=== PATIENT | female | born 1975 | race Caucasian/White ===

== ENCOUNTER 2016-09-08 13:56 | Emergency (ER) | payer OTHER ==
--- NOTE | 2016-09-08 14:05 | PDOC ---
History of Present Illness - General Chief Complaint: Redness To Affected Area Stated Complaint: right 4th finger redness Time Seen by Provider: 09/08/16 13:59 History Source: Patient Exam Limitations: No Limitations - History of Present Illness Initial Comments: 09/08/16 14:02 41 y/o female with infection to the right 4th digit for 4 days. It has become red and swollen and painful to touch at the tip of the finger. No fall or trauma. No fever or chills. Severity: Yes: mild Past History - Past Medical History Allergies/Adverse Reactions: Allergies Allergy/AdvReac Type Severity Reaction Status Date / Time clarithromycin [From Biaxin] Allergy Verified 09/08/16 14:06 Home Medications: Ambulatory Orders Clindamycin [Cleocin -] 150 mg PO Q8H #21 capsule 09/08/16 - Reproductive History (#): 0 Para: 0 Spontaneous : 0 - Psycho/Social/Smoking Cessation Hx Suicidal Ideation: No Smoking Status: No Smoking History: Never smoked Number of Cigarettes Smoked Daily: 0 Review of Systems - Review of Systems Able to Perform ROS?: Yes Is the patient limited Lebanese proficient: No Constitutional: No: Chills, Fever Respiratory: No: Cough, Shortness of Breath Cardiac (ROS): No: Chest Pain Integumentary: Yes: Erythema, Rash Neurological: No: Headache All Other Systems: Reviewed and Negative *Physical Exam - Physical Exam General Appearance: Yes: Nourished. No: Appropriately Dressed, Apparent Distress HEENT: positive: EOMI, PRECIOUS, Normal ENT Inspection Neck: positive: Supple Vascular Pulses: Femoral (R): 4+, Femoral (L): 4+, Carotid (R): 4+, Carotid (L) : 4+, Dorsalis-Pedis (R): 4+, Doralis-Pedis (L): 4+ Lymphatic: negative: Adenopathy, Tenderness, Other Musculoskeletal: positive: Normal Inspection. negative: CVA Tenderness Extremity: positive: Normal Capillary Refill, Normal Range of Motion, Tender. negative: Normal Inspection (red swollen tender area to right 4th finger, full ROM at PIP/DIP, no focal deficits noted, mild fluctuance), Coldness, Cyanosis Integumentary: positive: Normal Color, Dry, Warm, Erythema, Swelling Neurologic: positive: meter tester II-XII NML intact, Fully Oriented, Alert, Normal Mood/ Affect, Normal Response, Motor Strength 5/5 Procedures - Incision and Drainage I&D Site: Right: Other (4th digit) Betadine cleansed: Yes Blade Size: 11 Attempts: 1 Complications: none (1 cc of purulent drainage noted) Dressing: No Progress Note - Progress Note Progress Note: Pt with paronychia to 4th right finger. Will I&D and place on Clindamycin If worsen return to ER Pt is in agreement with plan. *DC/Admit/Observation/Transfer Diagnosis at time of Disposition: Paronychia of finger of right hand - Discharge Dispostion Disposition: HOME Condition at time of disposition: Good Admit: No - Patient Instructions Printed Discharge Instructions: DI for Paronychia Additional Instructions: Clindamycin 150 mg 3x/day for 7 days Soak finger in warm soaks 3-4x/day for 10-15 minutes Motrin, rest If worsen return to ER
[2016-09-08] MEDS ORDERED: IBUPROFEN 400 MG TABLET (FP) PO ONE ×2 (14:09→14:12)
[2016-09-08 14:13] VITALS: BP 122/68; PULSE 77; TEMP 98; BMI 26.6
== END 2016-09-08 14:37 | disposition home or self-care (01) ==
LOC: FER 13:56
PROC: 0H9FXZZ Drainage of Right Hand Skin, External Approach (ICD-10-PCS; principal; 2016-09-08)
DX: L03.011 Cellulitis of right finger (principal)
CPT/HCPCS: 99282-25

== ENCOUNTER 2017-04-02 15:20 | Emergency (ER) | payer OTHER ==
[2017-04-02 15:34] VITALS: BP 164/106; PULSE 66; TEMP 98; BMI 23.1
--- NOTE | 2017-04-02 15:42 | PDOC ---
Rapid Medical Evaluation Chief Complaint: Eye Problem Time Seen by Provider: 04/02/17 15:38 Medical Evaluation: Allergies Allergy/AdvReac Type Severity Reaction Status Date / Time clarithromycin [From Biaxin] Allergy Verified 04/02/17 15:34 Vital Signs Temp Pulse Resp BP Pulse Ox 98.0 F 66 20 164/106 100 04/02/17 15:30 04/02/17 15:30 04/02/17 15:30 04/02/17 15:30 04/02/17 15:30 04/02/17 15:41 I have performed a brief in-person evaluation of this patient. The patient presents with a chief complaint of:sty to R eye Pertinent physical exam findings:sty to lid I have ordered the following:nothing, proceed to FT The patient will proceed to the ED for further evaluation.
[2017-04-02] MEDS ORDERED: ERYTHROMYCIN 0.5% OPHTHALMIC OINTMENT 3.5 GM TUBE OD ONE (16:01)
[2017-04-02] MEDS ORDERED: ERYTHROMYCIN 0.5% OPHTHALMIC OINTMENT 3.5 GM TUBE ONE (16:04)
--- NOTE | 2017-04-02 16:06 | PDOC ---
History of Present Illness - General Chief Complaint: Eye Problem Stated Complaint: STYE IN RT EYE Time Seen by Provider: 04/02/17 15:38 History Source: Patient Exam Limitations: No Limitations - History of Present Illness Initial Comments: 04/02/17 16:00 c/o stye to right upper eyelid for 5 days. no fever had swelling and discharge this morning. Timing/Duration: 1 week Severity: mild Past History - Past Medical History Allergies/Adverse Reactions: Allergies Allergy/AdvReac Type Severity Reaction Status Date / Time clarithromycin [From Biaxin] Allergy Verified 04/02/17 15:34 Home Medications: Ambulatory Orders Erythromycin 0.5% Eye Ointment [Erythromycin 0.5% Eye Ointment -] 1 applic OD TID #1 tube 04/02/17 COPD: No - Reproductive History (#): 0 Para: 0 Spontaneous : 0 - Suicide/Smoking/Psychosocial Hx Smoking Status: No Smoking History: Never smoked Have you smoked in the past 12 months: No Number of Cigarettes Smoked Daily: 0 Hx Alcohol Use: No Drug/Substance Use Hx: No Substance Use Type: None Review of Systems - Review of Systems Able to Perform ROS?: Yes Is the patient limited Upper Sorbian proficient: No Constitutional: No: Symptoms Reported HEENTM: Yes: Symptoms Reported Respiratory: No: Symptoms reported Cardiac (ROS): No: Symptoms Reported ABD/GI: No: Symptoms Reported : No: Symptoms Reported Musculoskeletal: No: Symptoms Reported Integumentary: Yes: Symptoms Reported Neurological: No: Symptoms reported *Physical Exam - Vital Signs Last Vital Signs Temp Pulse Resp BP Pulse Ox 98.0 F 66 20 164/106 100 04/02/17 15:30 04/02/17 15:30 04/02/17 15:30 04/02/17 15:30 04/02/17 15:30 - Physical Exam General Appearance: Yes: Nourished, Appropriately Dressed HEENT: positive: EOMI, PRECIOUS, TMs Normal, Other (right upper eyelid with stye mobile with surrounding redness no drainage no periorbital swelling or pain, EOMI without pain ) Neck: positive: Supple Respiratory/Chest: positive: Lungs Clear, Normal Breath Sounds Cardiovascular: positive: Regular Rhythm, Regular Rate Extremity: positive: Normal Capillary Refill, Normal Inspection, Normal Range of Motion Integumentary: positive: Normal Color, Dry, Warm Neurologic: positive: Fully Oriented, Alert, Normal Mood/Affect, Normal Response , Motor Strength 10/04 Medical Decision Making - Medical Decision Making 04/02/17 16:03 cc: stye to right upper eyelid had swelling and drainage this am will prescribe erythromycin ointment *DC/Admit/Observation/Transfer Diagnosis at time of Disposition: Stye external Qualifiers: Laterality: right Eyelid: upper Qualified Code(s): H00.011 - Hordeolum externum right upper eyelid - Discharge Dispostion Disposition: HOME Condition at time of disposition: Good - Prescriptions Prescriptions: Erythromycin 0.5% Eye Ointment [Erythromycin 0.5% Eye Ointment -] 1 applic OD TID #1 tube - Referrals Referrals: Yumiko Araiza MD [Primary Care Provider] - Mason Laughlin [Staff Physician] - - Patient Instructions Additional Instructions: follow with the eye doctor if symptoms worsen avoid using eye makeup warm compresses to the area of swelling clean with a moist cotton ball and antibacterial soap twice a day apply the eye ointment in a thin layer to lower lid and close eyes gently massage to get the ointment to the upper lid as well use for 5 days - Post Discharge Activity
== END 2017-04-02 16:09 | disposition home or self-care (01) ==
LOC: JERFT 15:20
DX: H00.011 Hordeolum externum right upper eyelid (principal)
CPT/HCPCS: 99281-25

== ENCOUNTER 2018-09-17 22:19 | Emergency (ER) | payer OTHER ==
[2018-09-17 22:24] VITALS: PULSE 83; TEMP 98.2; BMI 23.0
--- NOTE | 2018-09-17 23:06 | PDOC ---
History of Present Illness - General Chief Complaint: Chest Pain Stated Complaint: LFT HAND NUMBNESS Time Seen by Provider: 09/17/18 23:00 - History of Present Illness Initial Comments: 09/17/18 23:01 43 yo F with no significant pmh who p/w chest pain, and left arm numbness. Patient reports 2 days of severe unremitting, left sided neck pain radiating to left fingertips asx. w/tingling. Also endorses left sided sharp chest pain occurring for seconds and resolving spontaneously. No identifiable triggers or alleviators. Denies external neck manipulation, repetitive movements, or heavy lifting. states that she has experienced left arm pain before in past, but never as severe as current presentation. Also endorses occasional sustained chin spasms "twitching,." Denies neck or chest trauma. Patient denies RAMON, vision change, palpitations, cough, wheezing, orthopena, PND , leg swelling/pain, N/V, F/C, SOB, urinary complaints, hematuria, BPR, abdominal pain, diarrhea, constipation, lightheadedness, weakness. PMHx: as noted above. Denies h/o ACS/MS, stress testing, holter monitor testing , stent or CABG. Denies h/o PE/DVT. Surgical: Oophorectomy, and breast reduction ROS: as noted SHx: Denies tobacco, IVDA, Etoh Allergies: Percocet, Atarax PMD: Ammir Teodora Past History - Past Medical History Allergies/Adverse Reactions: Allergies Allergy/AdvReac Type Severity Reaction Status Date / Time clarithromycin [From Biaxin] Allergy Severe SEVERE N&V Verified 09/17/18 22:24 Home Medications: Ambulatory Orders Oxycodone HCl/Acetaminophen [Percocet 10-325 mg Tablet] 1 each PO QID 03/05/18 hydrOXYzine HCL [Atarax -] 10 mg PO ASDIR PRN 03/05/18 Methocarbamol [Robaxin -] 500 mg PO BID PRN #10 tablet MDD 2 tab 09/18/18 Anemia: Yes (DURING ) Asthma: No Cancer: No Cardiac Disorders: No CVA: No COPD: No CHF: No Dementia: No Diabetes: No GI Disorders: No Disorders: No HTN: No Hypercholesterolemia: No Liver Disease: No Seizures: No Thyroid Disease: No - Surgical History Abdominal Surgery: No Appendectomy: No Cardiac Surgery: No Cholecystectomy: No Lung Surgery: No Neurologic Surgery: No Orthopedic Surgery: No - Reproductive History (#): 0 Para: 0 Spontaneous : 0 - Suicide/Smoking/Psychosocial Hx Smoking Status: No Smoking History: Never smoked Have you smoked in the past 12 months: No Number of Cigarettes Smoked Daily: 0 Hx Alcohol Use: No Drug/Substance Use Hx: No Substance Use Type: None Review of Systems - Review of Systems Comments:: 09/17/18 23:04 GENERAL/CONSTITUTIONAL: No fever or chills. No weakness. HEAD, EYES, EARS, NOSE AND THROAT: No change in vision. No ear pain or discharge. No sore throat. CARDIOVASCULAR: + chest pain. No shortness of breath RESPIRATORY: No cough, wheezing, or hemoptysis. GASTROINTESTINAL: No nausea, vomiting, diarrhea or constipation. GENITOURINARY: No dysuria, frequency, or change in urination. MUSCULOSKELETAL: No joint or muscle swelling or pain. No neck or back pain. SKIN: No rash NEUROLOGIC: Change in sensation. No headache, vertigo, loss of consciousness, or change in strength. ENDOCRINE: No increased thirst. No abnormal weight change HEMATOLOGIC/LYMPHATIC: No anemia, easy bleeding, or history of blood clots. ALLERGIC/IMMUNOLOGIC: No hives or skin allergy. *Physical Exam - Vital Signs Last Vital Signs Temp Pulse Resp BP Pulse Ox 98.2 F 83 18 176/93 H 99 09/17/18 22:22 09/17/18 22:22 09/17/18 22:22 09/17/18 22:22 09/17/18 22:22 - Physical Exam Comments: 09/17/18 23:04 GENERAL: Awake, alert, and fully oriented, in no acute distress HEAD: No signs of trauma, normocephalic, atraumatic EYES: PERRLA, EOMI, sclera anicteric, conjunctiva clear ENT: Auricles normal inspection, hearing grossly normal, nares patent, oropharynx clear without exudates. Moist mucosa NECK: Normal ROM, supple, no lymphadenopathy, JVD, or masses Neck: Neg c-spine ttp. + left sided paraspinal ttp. Absent bony deformity or stepoff. LUNGS: No distress, speaks full sentences, clear to auscultation bilaterally HEART: Regular rate and rhythm, normal S1 and S2, no murmurs, rubs or gallops, peripheral pulses normal and equal bilaterally. ABDOMEN: Soft, nontender, normoactive bowel sounds. No guarding, no rebound. No masses EXTREMITIES : Normal inspection, Normal range of motion, no edema. No clubbing or cyanosis. NEUROLOGICAL: Cranial nerves II through XII grossly intact. Normal speech, normal gait, no focal sensorimotor deficits SKIN: Warm, Dry, normal turgor, no rashes or lesions noted ED Treatment Course - LABORATORY CBC & Chemistry Diagram: 09/17/18 23:23 09/17/18 23:23 Medical Decision Making - Medical Decision Making 09/17/18 23:03 43 yo F with no significant pmh who p/w 2 days of severe unremitting, left sided neck pain radiating to left fingertips asx. w/tingling. and intermittent sharp, left sided chest pain. Physical exam unremarkable. BP 176/93, vitals otherwise wnl, AF, ACS/MS r/o. R/o PNA. DDx includes pleural/pericardial effusion, PNA, PERC Neg PE. Will assess for thyroid dysfunction, cardiac dysarrythmias, hypoglycemia, electrolyte abnml, metabolic and toxic derangements , acid-base disturbances, infection. Will reassess. DUPLEX LUE r/o DVT. ED Course: 09/17/18 23:29 Robaxin, Tylenol 09/18/18 00:20 EKG: NSR with absent SANKET, STD. Nml interval duration and axis. Nml R wave progression. Absent Q waves. 09/18/18 01:18 145/93 repeat BP 09/18/18 01:56 Toradol 60 IM CMP: Unremarkable Trop: Neg Patient advised to f/u with neurology Stable for d/c with return precautions. 09/18/18 02:19 CXR: Unremarkable Advised to f/u neruosurgery 09/18/18 03:04 DUPLEX LUE: No evidence of DVT *DC/Admit/Observation/Transfer Diagnosis at time of Disposition: Arm paresthesia, left - Discharge Dispostion Condition at time of disposition: Stable Decision to Admit order: No - Prescriptions Prescriptions: Methocarbamol [Robaxin -] 500 mg PO BID PRN #10 tablet MDD 2 tab PRN Reason: Pain - Referrals Referrals: Ivan Helms MD [Staff Physician] - Yumiko Araiza MD [Primary Care Provider] - Gerson Hilliard MD, FAANS [Staff Physician] - - Patient Instructions Printed Discharge Instructions: DI for Atypical Chest Pain Additional Instructions: Please return to the emergency department with any new or worsening symptoms or concerns. Please follow up with your primary care physician and neurosurgery within 72 hours. Can take Robaxin two times a day as needed. - Post Discharge Activity
[2018-09-17] MEDS ORDERED: ACETAMINOPHEN 325 MG TABLET (FP) PO ONE (23:37)
[2018-09-17] MEDS ORDERED: ACETAMINOPHEN 325 MG TABLET (FP) ONE (23:42)
[2018-09-17] MEDS ORDERED: METHOCARBAMOL 500 MG TABLET PO ONE (23:51)
[2018-09-18] LABS: BASO % 0.5 % (0-2.0); HEMATOCRIT 39.3 % (32.4-45.2); HEMOGLOBIN 13.2 GM/dL (10.7-15.3); LYMPH % 42.3 % (8-40); MCH 30.9 pg (25.7-33.7); MCHC 33.6 g/dl (32.0-36.0); MEAN CELL VOLUME 91.9 fl (80-96); MEAN PLT VOLUME 8.2 fl (7.5-11.1); NEUT % 50.2 % (42.8-82.8); PLATELET COUNT 226 K/MM3 (134-434); RBC 4.28 M/mm3 (3.60-5.2); RDW 12.7 % (11.6-15.6); WHITE BLOOD COUNT 6.1 K/mm3 (4.0-10.0)
--- NOTE | 2018-09-18 00:03 | PDOC ---
Documentation entered by Vi Mccurdy SCRIBE, acting as scribe for Lynn Franks DO. Lynn Franks DO: This documentation has been prepared by the Kaz coleman Daisy, SCRIBE, under my direction and personally reviewed by me in its entirety. I confirm that the documentation accurately reflects all work, treatment, procedures, and medical decision making performed by me. Attending Attestation - Resident Resident Name: Kade Syed - ED Attending Attestation I have performed the following: I have examined & evaluated the patient, The case was reviewed & discussed with the resident, I agree w/resident's findings & plan, Exceptions are as noted - HPI HPI: 09/18/18 00:06 The patient is a 43 YOF with left arm numbness and neck pain today. Patient denies any trauma or recent falls. Denies any heavy lifting. - Physicial Exam PE: 09/18/18 00:04 ADULT PHYSICAL EXAM Constitutional: Awake, alert, oriented. No acute distress. Cardiovascular: Regular rate. Regular rhythm. S1, S2 regular. Distal pulses are 2+ and symmetric. Pulmonary/Chest: No evidence of respiratory distress. Clear to auscultation bilaterally No wheezing, rales or rhonchi. Abdominal: Soft and non-distended. There is no tenderness. No rebound, guarding or rigidity. Back: No C, T, or L spine tenderness. (+) Rhomboids/trapezius tenderness. Musculoskeletal: No edema. No cyanosis. No clubbing. Full range of motion in all extremities. No calf tenderness. Radial/pedal pulses are intact and 2+ bilaterally Skin: Skin is warm and dry. Neurological: Alert and oriented to person, place, and time. Cranial nerves II -XII are grossly intact. Psychiatric: Good eye contact. Normal interaction, affect and behavior. - Medical Decision Making 09/18/18 00:00 I, Dr. Lynn Franks DO, attest that this document has been prepared under my direction and personally reviewed by me in its entirety. I further attest, that it accurately reflects all work, treatment, procedures and medical decision -making performed by me. 09/18/18 00:00 a/p: 43yo female with anterior chest pinpoint pain and L arm numbness and neck pain -has had neck pain x days, but paresthesias-tingling sensation to L arm constant today -palpation of the L lateral neck and rhomboids/trap reproduces paresthesias and tingling down the arm -denies trauma -denies heavy lifting or carrying anything on her L side -neurovasc intact -sensation intact -will send labs, ekg, cxr -suspect MSK pain - no PE risk factors -will give tylenol and robaxin and reassess 09/18/18 01:55 trop negative cxr clear labs reviewed and neg lipase tsh normal Heart Score/ECG Review - ECG Intrepretation Comment:: 09/18/18 00:03 sinus at 82, nl axis, nl interval, no acute st/t wave findings
[2018-09-18] MEDS ORDERED: METHOCARBAMOL 500 MG TABLET ONE (00:07)
[2018-09-18 00:33] VITALS: BP 145/93
[2018-09-18 01:37] LABS: ALBUMIN 3.8 g/dl (3.4-5.0); ALK PHOS 73 U/L (45-117); ANION GAP 7 MMOL/L (8-16); BILIRUBIN,TOTAL 0.1 mg/dL (0.2-1); BLOOD UREA NITROGEN 13 mg/dL (7-18); CALCIUM 9.2 mg/dL (8.5-10.1); CHLORIDE 103 mmol/L (98-107); CO2 26 mmol/L (21-32); CREATININE 0.8 mg/dL (0.55-1.3); GLUCOSE,RANDOM 82 mg/dL (74-106); LIPASE 164 U/L (73-393); POTASSIUM 3.8 mmol/L (3.5-5.1); SGOT/AST 20 U/L (15-37); SGPT/ALT 13 U/L (13-61); SODIUM 137 mmol/L (136-145); TOT PROT 7.6 g/dl (6.4-8.2)
[2018-09-18] MEDS ORDERED: KETOROLAC TROMETHAMINE 60 MG/2 ML VIAL IM ONE (01:56)
[2018-09-18] MEDS ORDERED: KETOROLAC TROMETHAMINE 60 MG/2 ML VIAL ONE (01:58)
--- NOTE | 2018-09-18 10:38 | EKG ---
Test Reason : Blood Pressure : / mmHG Vent. Rate : 082 BPM Atrial Rate : 082 BPM P-R Int : 130 ms QRS Dur : 078 ms QT Int : 380 ms P-R-T Axes : 072 066 060 degrees QTc Int : 443 ms NORMAL SINUS RHYTHM POSSIBLE LEFT ATRIAL ENLARGEMENT NONSPECIFIC ST ABNORMALITY NO PREVIOUS ECGS AVAILABLE Confirmed by BILL SANTOYO MD ([id number]) on 09/18/2018 10:38:21 AM Referred By: Confirmed By:BILL SANTOYO MD
== END 2018-09-18 03:08 | disposition home or self-care (01) ==
LOC: JER 22:19
PROC: 3E0233Z Introduction of Anti-inflammatory into Muscle, Percutaneous Approach (ICD-10-PCS; principal; 2018-09-17)
DX: R20.2 Paresthesia of skin (principal)
CPT/HCPCS: 36415; 71046-TC-FY; 80053; 82550; 83690; 83735; 84443; 84484; 84703; 85025; 93005; 93010; 93971; 99284-25

== ENCOUNTER 2020-04-24 15:24 | Emergency (ER) | payer OTHER | END 2020-04-24 15:40 | disposition home or self-care (01) | LOC: JVIRT 15:24 | DX: Z03.818 Encounter for observation for suspected exposure to other biological agents ruled out (principal) | CPT/HCPCS: C9803; G2012-GT; U0003 ==

== ENCOUNTER 2021-01-25 18:28 | Emergency (ER) | payer OTHER ==
[2021-01-25 18:54] VITALS: BMI 23.9
[2021-01-25] MEDS ORDERED: ONDANSETRON 4 MG/2 ML VIAL IVPUSH ONE (20:13)
[2021-01-25] MEDS ORDERED: SODIUM CHLORIDE 1,000 ML IV STA (20:13)
[2021-01-25] MEDS ORDERED: ONDANSETRON 4 MG/2 ML VIAL ONE (20:39)
[2021-01-25 21:26] LABS: BASO % 0.4 % (0-2.0); EOS % 0.6 % (0-4.5); HEMATOCRIT 40.5 % (32.4-45.2); HEMOGLOBIN 13.7 GM/dL (10.7-15.3); LYMPH % 34.2 % (8-40); MCH 29.8 pg (25.7-33.7); MCHC 33.9 g/dl (32.0-36.0); MEAN CELL VOLUME 87.9 fl (80-96); MEAN PLT VOLUME 7.7 fl (7.5-11.1); MONO % 7.3 % (3.8-10.2); NEUT % 57.5 % (42.8-82.8); PLATELET COUNT 221 10^3/uL (134-434); RBC 4.61 M/mm3 (3.60-5.2); RDW 13.3 % (11.6-15.6); WHITE BLOOD COUNT 6.5 K/mm3 (4.0-10.0)
[2021-01-25 21:30] LABS: EPI CELLS 3 /uL (0-25.1); HCG,QUALITATIVE URINE Positive; HYALINE CASTS 0 /uL (0-3.1); URINE APPEARANCE CLEAR; URINE BACTERIA 10 /uL (0-1359); URINE BILIRUBIN NEGATIVE (NEGATIVE); URINE COLOR YELLOW; URINE GLUCOSE (UA) NEGATIVE (NEGATIVE); URINE KETONE 2+ (NEGATIVE); URINE LEUK ESTERASE NEGATIVE (NEGATIVE); URINE NITRITE NEGATIVE (NEGATIVE); URINE PROTEIN NEGATIVE (NEGATIVE); URINE RBC 5 /uL (0-23.9); URINE UROBILINOGEN 0.2 mg/dL (0.2-1.0); URINE WBC 2 /uL (0-25.8)
[2021-01-25 22:45] LABS: CALCIUM 9.2 mg/dL (8.5-10.1)
[2021-01-25 22:46] LABS: ALBUMIN 4.3 g/dl (3.4-5.0); BLOOD UREA NITROGEN 13.1 mg/dL (7-18)
[2021-01-25 22:49] LABS: CREATININE 1.1 mg/dL (0.55-1.3)
[2021-01-25 23:09] LABS: BILIRUBIN,TOTAL 0.5 mg/dL (0.2-1)
[2021-01-26] MEDS ORDERED: SODIUM CHLORIDE 0.9% 500 ML INFUS.BAG IV ONE (02:57)
[2021-01-26] MEDS ORDERED: ACETAMINOPHEN 500 MG TABLET (FP) PO ONE (05:48)
[2021-01-26] MEDS ORDERED: ACETAMINOPHEN 325 MG TABLET (FP) ONE (06:01)
[2021-01-26 13:46] VITALS: BP 128/85; PULSE 80; TEMP 98.6
== END 2021-01-26 17:40 | disposition home or self-care (01) ==
LOC: JER 18:28 → JERBED 01-26 09:40 → UNDOADMOB 01-26 09:40 → JER 01-26 17:40
PROC: 3E033NZ Introduction of Analgesics, Hypnotics, Sedatives into Peripheral Vein, Percutaneous Approach (ICD-10-PCS; principal; 2021-01-25)
PROC: 3E0337Z Introduction of Electrolytic and Water Balance Substance into Peripheral Vein, Percutaneous Approach (ICD-10-PCS; 2021-01-25)
DX: R10.2 Pelvic and perineal pain (principal)
CPT/HCPCS: 36415; 74181-TC; 76817-TC; 76856-TC; 80053; 81003; 83690; 84702; 84703; 85025; 86850; 86900; 86901; 87086; 99285-25; C9803; U0003; U0005

== ENCOUNTER 2023-02-16 20:19 | Emergency (ER) | payer OTHER ==
[2023-02-16 20:36] VITALS: BP 152/92; PULSE 85; RESP 16; TEMP 98.4; BMI 21.9
== END 2023-02-16 21:56 | disposition home or self-care (01) ==
LOC: FER 20:19
PROC: 2W3CX1Z Immobilization of Right Lower Arm using Splint (ICD-10-PCS; principal; 2023-02-16)
DX: S62.336A Displaced fracture of neck of fifth metacarpal bone, right hand, initial encounter for closed fracture (principal); W22.8XXA Striking against or struck by other objects, initial encounter
CPT/HCPCS: 73130-TC-RT-FY; 99283-25